=== PATIENT | male | born 1965 | race Caucasian/White ===

== ENCOUNTER → 2017-08-23 | Outpatient (CLI) | payer OTHER ==
[~2017-08-23] MED LIST: ADVAIR 500/50 D1 AER IH; ALBUTEROL HHN; ALBUTEROL2.5 MG/31 HHN; ATRUD HHN; CLA10 PO; FLOVENT DI50 MCG/Act IH; KETOCONAZOLE S TP; MEV20 PO; PREDNISONE; PROAIR HFA0.09 MG/Ac; PROAIR HFA0.09 MG/Ac IH; PROTOPIC TP; TRIAMCINOLONE0.025% TP; TRIAMCINOLONE0.1% TP; ZYR10 PO
[2017-08-23 10:30] LABS: BASOPHIL % 0.5 % (0-2); PLATELET COUNT 363 x10^3mcL (130-400); RED CELL DISTRIBUTION WIDTH 13.3 % (11.5-14.5)
[2017-08-23 10:32] LABS: UA SPECIFIC GRAVITY >=1.030 (1.005-1.035); microscopic required? YES; urine erythrocyte NEGATIVE (NEGATIVE)
[2017-08-23 11:58] LABS: ALBUMIN 3.9 g/dL (3.4-5.0); ALKALINE PHOSPHATASE 88 U/L (46-116); ALT/SGPT 48 U/L (16-63); AST/SGOT 22 U/L (15-37); CALCIUM 8.9 mg/dL (8.5-10.1); CARBON DIOXIDE 25.4 mmol/L (21-32); CHLORIDE SERUM 107 mmol/L (98-107); CREATININE SERUM 0.8 mg/dL (0.7-1.3); GFR1 > 60 mL/min; GLUCOSE SERUM 101 mg/dL (74-106); HDL CHOLESTEROL 60 mg/dL (40-60); POTASSIUM SERUM 4.1 mmol/L (3.5-5.1); SODIUM SERUM 143 mmol/L (136-145)
[2017-08-23 12:05] LABS: CHOLESTEROL 203 mg/dL (<200); CHOLESTEROL/HDL RATIO 3.4; TOTAL PROTEIN, SERUM 8.4 g/dL (6.4-8.2); TRIGLYCERIDES 236 mg/dL (<150)
== END | disposition home or self-care (01) ==
LOC: LB 09:55
DX: E78.5 Hyperlipidemia, unspecified (principal); J44.9 Chronic obstructive pulmonary disease, unspecified
CPT/HCPCS: 84153

== ENCOUNTER 2018-10-02 11:10 | Emergency (ER) | payer OTHER ==
[~2018-10-02] VITALS: Ht 167.6 cm; Wt 74.8 kg
[2018-10-02 11:23] VITALS: Ht 167.6 cm; Wt 74.8 kg
[2018-10-02 13:44] VITALS: BP 154/80
== END 2018-10-02 14:25 | disposition home or self-care (01) ==
LOC: ED 11:10
DX: M43.6 Torticollis (principal); J45.909 Unspecified asthma, uncomplicated; L30.9 Dermatitis, unspecified
CPT/HCPCS: J1100; J1885

== ENCOUNTER 2018-10-06 23:55 | Emergency (ER) | payer OTHER ==
[~2018-10-06] VITALS: Ht 167.6 cm; Wt 73.9 kg
[2018-10-07 00:01] VITALS: Ht 167.6 cm; Wt 73.9 kg
[2018-10-07 01:43] VITALS: BP 137/87
== END 2018-10-07 01:43 | disposition home or self-care (01) ==
LOC: ED 23:55
DX: S16.1XXA Strain of muscle, fascia and tendon at neck level, initial encounter (principal); J45.909 Unspecified asthma, uncomplicated; X58.XXXA Exposure to other specified factors, initial encounter; Y93.89 Activity, other specified; Y92.89 Other specified places as the place of occurrence of the external cause; Y99.8 Other external cause status
CPT/HCPCS: J1885

== ENCOUNTER → 2018-11-05 | Outpatient (CLI) | payer OTHER ==
[2018-11-05 11:10] LABS: CALCIUM 8.4 mg/dL (8.5-10.1); CARBON DIOXIDE 25.9 mmol/L (21-32); CHLORIDE SERUM 104 mmol/L (98-107); CREATININE SERUM 0.7 mg/dL (0.7-1.3); GFR1 > 60 mL/min; GLUCOSE SERUM 94 mg/dL (74-106); POTASSIUM SERUM 3.9 mmol/L (3.5-5.1); SODIUM SERUM 140 mmol/L (136-145)
== END | disposition home or self-care (01) ==
LOC: LB 10:19 → RD 10:19 → CT 11-08 10:00
DX: M79.10 Myalgia, unspecified site (principal)
CPT/HCPCS: 86200

== ENCOUNTER → 2018-11-08 | Outpatient (CLI) | payer OTHER | END | disposition home or self-care (01) | LOC: CT 09:15 | PROC: BW241ZZ Computerized Tomography (CT Scan) of Chest and Abdomen using Low Osmolar Contrast (ICD-10-PCS; principal; 2018-11-08) | DX: R22.2 Localized swelling, mass and lump, trunk (principal) | CPT/HCPCS: Q9967 ==

== ENCOUNTER → 2019-02-25 | Outpatient (CLI) | payer OTHER ==
[2019-02-25 12:29] LABS: CARBON DIOXIDE 30.1 mmol/L (21-32); CHLORIDE SERUM 104 mmol/L (98-107); CHOLESTEROL 200 mg/dL (<200); CHOLESTEROL/HDL RATIO 3.8; CREATININE SERUM 0.9 mg/dL (0.7-1.3); GFR1 > 60 mL/min; GLUCOSE SERUM 95 mg/dL (74-106); HDL CHOLESTEROL 53 mg/dL (40-60); POTASSIUM SERUM 4.4 mmol/L (3.5-5.1); SODIUM SERUM 141 mmol/L (136-145)
[2019-02-25 12:47] LABS: TRIGLYCERIDES 232 mg/dL (<150)
== END | disposition home or self-care (01) ==
LOC: LB 11:51
DX: E78.5 Hyperlipidemia, unspecified (principal)

== ENCOUNTER → 2019-04-24 | Outpatient (CLI) | payer OTHER ==
[2019-04-24 14:16] LABS: BASOPHIL % 0.2 % (0-2); RED CELL DISTRIBUTION WIDTH 13.7 % (11.5-14.5)
[2019-04-24 14:26] LABS: PLATELET COUNT 420 x10^3mcL (130-400)
[2019-04-24 14:40] LABS: ALBUMIN 3.6 g/dL (3.4-5.0); ALKALINE PHOSPHATASE 78 U/L (46-116); ALT/SGPT 46 U/L (16-63); AST/SGOT 20 U/L (15-37); BILIRUBIN TOTAL 0.3 mg/dL (0.20-1.00); CALCIUM 8.4 mg/dL (8.5-10.1); CARBON DIOXIDE 26.4 mmol/L (21-32); CHLORIDE SERUM 107 mmol/L (98-107); CREATININE SERUM 0.9 mg/dL (0.7-1.3); GFR1 > 60 mL/min; GLUCOSE SERUM 126 mg/dL (74-106); HDL CHOLESTEROL 44 mg/dL (40-60); POTASSIUM SERUM 4.1 mmol/L (3.5-5.1); SODIUM SERUM 142 mmol/L (136-145)
[2019-04-24 14:45] LABS: CHOLESTEROL 219 mg/dL (<200); TRIGLYCERIDES 514 mg/dL (<150)
[2019-04-24 14:53] LABS: BILIRUBIN DIRECT 0.05 mg/dL (0.0-0.2)
== END | disposition home or self-care (01) ==
LOC: RD 09:38
DX: L85.3 Xerosis cutis (principal); L30.9 Dermatitis, unspecified
CPT/HCPCS: 86480

== ENCOUNTER → 2019-10-23 | Outpatient (CLI) | payer OTHER ==
[2019-10-23 11:03] LABS: BASOPHIL % 0.8 % (0-2); PLATELET COUNT 320 x10^3mcL (130-400); RED CELL DISTRIBUTION WIDTH 13.7 % (11.5-14.5)
[2019-10-23 11:37] LABS: ALBUMIN 3.9 g/dL (3.4-5.0); ALKALINE PHOSPHATASE 69 U/L (46-116); ALT/SGPT 39 U/L (16-63); AST/SGOT 26 U/L (15-37); BILIRUBIN TOTAL 0.6 mg/dL (0.20-1.00); CALCIUM 8.3 mg/dL (8.5-10.1); CARBON DIOXIDE 25.9 mmol/L (21-32); CHLORIDE SERUM 105 mmol/L (98-107); CHOLESTEROL 198 mg/dL (<200); CHOLESTEROL/HDL RATIO 3.5; CREATININE SERUM 0.9 mg/dL (0.7-1.3); GFR1 > 60 mL/min; GLUCOSE SERUM 97 mg/dL (74-106); HDL CHOLESTEROL 57 mg/dL (40-60); SODIUM SERUM 140 mmol/L (136-145); TOTAL PROTEIN, SERUM 7.9 g/dL (6.4-8.2); TRIGLYCERIDES 189 mg/dL (<150)
== END | disposition home or self-care (01) ==
LOC: LB 10:43
DX: Z00.00 Encounter for general adult medical examination without abnormal findings (principal); E78.5 Hyperlipidemia, unspecified

== ENCOUNTER 2019-12-09 09:48 | Emergency (ER) | payer OTHER ==
[~2019-12-09] VITALS: Ht 167.6 cm; Wt 76.2 kg
[2019-12-09 10:02] VITALS: Ht 167.6 cm; Wt 76.2 kg
[2019-12-09 11:37] VITALS: BP 143/92
== END 2019-12-09 11:37 | disposition home or self-care (01) ==
LOC: ED 09:48
DX: H10.11 Acute atopic conjunctivitis, right eye (principal); J45.901 Unspecified asthma with (acute) exacerbation; E78.00 Pure hypercholesterolemia, unspecified; L30.9 Dermatitis, unspecified